=== PATIENT | female | born 2000 | race Caucasian/White ===

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

== ENCOUNTER → 2018-12-16 | Outpatient (REF) | payer OTHER ==
[~2018-12-16] MED LIST changes: +IBUP-1114 PO; +MAPA500T2 PO; +PRENTAB9 PO; +ROLA1CHW PO; +TRAZ1TAB10 PO; -TRAZO50TA PO
[2018-12-16 19:11] LABS: HEMOGLOBIN 12.8 g/dl (12.0-15.5); MEAN CORPUSCULAR HEMOGLOBIN 27.1 pg (27.0-33.0); MEAN CORPUSCULAR HGB CONC 32.8 g/dl (32.0-36.5); MEAN CORPUSCULAR VOLUME 82.5 fl (80.0-96.0); PLATELET COUNT, AUTOMATED 300 10^3/uL (150-450); RED BLOOD COUNT 4.73 10^6/uL (4.00-5.40)
[2018-12-16 19:21] LABS: HCG, SERUM QUANTITATIVE 58594 MIU/ML
[2018-12-16 19:43] LABS: HIV 1&2 SCREEN CENTAUR NEGATIVE (NEGATIVE)
[2018-12-18 10:57] LABS: RUBELLA IgG QUALITATIVE IMMUNE (IMMUNE)
[2018-12-18 11:26] LABS: HEPATITIS C VIRUS ABY INDEX 0.1 INDEX (<0.8)
== END ==
LOC: M LAB REF 16:50
PROVIDERS: ATTEND Obstetrics & Gynecology
DX: O36.80X0 Pregnancy with inconclusive fetal viability, not applicable or unspecified (principal)

== ENCOUNTER 2018-12-19 15:42 | Emergency (ER) | payer OTHER ==
[~2018-12-19] VITALS: Ht 154.9 cm; Wt 96.4 kg
[2018-12-19 17:45] VITALS: BP 116/74
== END 2018-12-19 17:50 | disposition home or self-care (01) ==
LOC: M ED 15:42
DX: F43.20 Adjustment disorder, unspecified (principal); T76.11XA Adult physical abuse, suspected, initial encounter; X58.XXXA Exposure to other specified factors, initial encounter; Y92.89 Other specified places as the place of occurrence of the external cause

== ENCOUNTER → 2019-05-04 | Outpatient (CLI) | payer OTHER ==
[2019-05-04 11:26] LABS: HEMATOCRIT 34.4 % (36.0-47.0); HEMOGLOBIN 10.9 g/dl (12.0-15.5); MEAN CORPUSCULAR HEMOGLOBIN 27.9 pg (27.0-33.0); MEAN CORPUSCULAR HGB CONC 31.7 g/dl (32.0-36.5); PLATELET COUNT, AUTOMATED 233 10^3/uL (150-450); RED BLOOD COUNT 3.91 10^6/uL (4.00-5.40); WHITE BLOOD COUNT 10.9 10^3/uL (4.0-10.0)
== END ==
LOC: M LAB 09:34
PROVIDERS: ATTEND Nurse Practitioner Women's Health
DX: Z34.82 Encounter for supervision of other normal pregnancy, second trimester (principal); Z3A.00 Weeks of gestation of pregnancy not specified

== ENCOUNTER → 2019-05-11 | Outpatient (CLI) | payer OTHER, MEDICAID | LOC: M LAB 08:01 | PROVIDERS: ATTEND Nurse Practitioner Women's Health | DX: R73.02 Impaired glucose tolerance (oral) (principal) ==

== ENCOUNTER → 2019-06-02 | Outpatient (REF) | payer OTHER, MEDICAID | LOC: M LAB REF 16:38 | PROVIDERS: ATTEND Obstetrics & Gynecology | DX: R31.0 Gross hematuria (principal) ==

== ENCOUNTER → 2019-06-03 | Outpatient (CLI) | payer OTHER, MEDICAID ==
--- NOTE | 2019-06-04 02:47 | REP ---
Clinical: Flank pain and hematuria. . Technique: Real time martinez scale ultrasound examination using. Findings: Right kidney is normal in reniform shape and echogenicity demonstrating mild hydronephrosis and hydroureter without intrarenal calculi, cyst or renal mass lesion. Right kidney measures 14.5 x 6.7 x 6.3 cm. Left kidney is normal in contour, size, echogenicity, and reniform shape without hydronephrosis, nephrolithiasis or renal mass lesion. Left kidney measures 12.7 x 5.2 x 5.9 cm with possible 1.3 cm parapelvic cyst. Bladder is normal and bilateral ureteral jets are identified. Impression: Mild right-sided hydronephrosis likely induced. Electronically Signed by Matty Merrill MD 06/04/2019 02:38 A
== END ==
LOC: M RAD 15:41
PROVIDERS: ATTEND Obstetrics & Gynecology
DX: O23.00 Infections of kidney in pregnancy, unspecified trimester (principal); R31.0 Gross hematuria; N13.30 Unspecified hydronephrosis

== ENCOUNTER → 2019-06-22 | Outpatient (REF) | payer OTHER, MEDICAID | LOC: M LAB REF 12:16 | PROVIDERS: ATTEND Obstetrics & Gynecology | DX: Z34.83 Encounter for supervision of other normal pregnancy, third trimester (principal); Z36.85 Encounter for antenatal screening for Streptococcus B ==

== ENCOUNTER → 2019-07-05 | Outpatient (CLI) | payer OTHER, MEDICAID ==
[~2019-07-05] MED LIST changes: -FLUO20CA19 PO; +FLUO20CA22 PO
--- NOTE | 2019-07-05 17:11 | REP ---
Clinical: Growth evaluation. Comparison: Cephalic . Findings: Examination demonstrates a single live intrauterine in the cephalic presentation. motion is identified by technologist. Placenta is noted posteriorly and grade II without evidence for placenta previa or abruption. Amniotic fluid volume is normal. Cervix measures 4.4 cm in length and appears closed. However, there is a small amount of fluid and possible mucous just anterior to the internal os of uncertain significance. No evidence for nuchal cord. Gestational age by LMP 36 weeks 5 days with HOMA 07/28/2019 . Gestational age by current measurements 37 weeks 3-day with HOMA date 07/23/2019 . FHR equals 138 beats per minute. Estimated weight 3393 grams ( 77th percentile based on age by LMP ). Amniotic fluid index: 14.2 cm (7.6 - 24.5) Umbilical cord SD ratio: 2.69 (1.71 - 2.71). Impression: 1. Single live advanced gestation in cephalic presentation demonstrating appropriate interval growth. 2. Small amount of fluid and/or mucous adjacent to the internal os without funneling and of uncertain significance. Electronically Signed by Matty Merrill MD 07/05/2019 05:02 P
== END ==
LOC: M RAD 15:57
PROVIDERS: ATTEND Obstetrics & Gynecology
DX: O32.8XX1 Maternal care for other malpresentation of fetus, fetus 1 (principal); Z3A.36 36 weeks gestation of pregnancy

== ENCOUNTER 2019-07-27 10:35 | Inpatient (IN) | payer OTHER, MEDICAID ==
[2019-07-27] VITALS (7 sets, daily range): BP systolic 113–127; BP diastolic 55–74
[~2019-07-27] VITALS: Ht 157.5 cm; Wt 100.2 kg
[2019-07-27] MEDS ORDERED: LACTATED RINGER'S 1000 ML IV STA (11:03)
[2019-07-27] MEDS ORDERED: LR 1,000 ML IV SCH ×2 (11:03→14:30)
[2019-07-27] MEDS ORDERED: ceFAZolin SOD 2 GM in IV 1 EA IV ONE (11:15)
[2019-07-27] MEDS ORDERED: BICITRA 30ML SOLN UDC PO ONE (11:15)
[2019-07-27 11:29] LABS: HEMATOCRIT 35.6 % (36.0-47.0); MEAN CORPUSCULAR HEMOGLOBIN 24.3 pg (27.0-33.0); MEAN CORPUSCULAR HGB CONC 30.9 g/dl (32.0-36.5); MEAN CORPUSCULAR VOLUME 78.8 fl (80.0-96.0); PLATELET COUNT, AUTOMATED 224 10^3/uL (150-450); RED BLOOD COUNT 4.52 10^6/uL (4.00-5.40); WHITE BLOOD COUNT 11.6 10^3/uL (4.0-10.0)
[2019-07-27] MEDS ORDERED: KETOROLAC 60 MG/2 ML VIAL (J1885) As Ordered ONE (12:54)
[2019-07-27] MEDS ORDERED: dexameTHASONE 4 MG/ML 1ML VIAL (J1100) As Ordered ONE (12:54)
[2019-07-27] MEDS ORDERED: ONDANSETRON 4MG/2ML VIAL (J2405) As Ordered ONE (12:54)
[2019-07-27] MEDS ORDERED: OXYTOCIN INJ 10 UNITS/ML VIAL (J2590) As Ordered ONE (12:54)
[2019-07-27] MEDS ORDERED: MORPHINE PRES-FREE INJ 10 MG/10 ML VIAL (J2274) As Ordered ONE (12:54)
[2019-07-27] MEDS ORDERED: ONDANSETRON 4MG/2ML VIAL (J2405) IV PRN ×2 (13:18→14:30)
[2019-07-27] MEDS ORDERED: NALOXONE INJ 0.4 MG/1 ML VIAL (J2310) IV PRN ×2 (13:18)
[2019-07-27] MEDS ORDERED: METOCLOPRAMIDE INJ 10MG/2ML VIAL (J2765) IV PRN ×2 (13:18→14:30)
[2019-07-27] MEDS ORDERED: NALBUPHINE HCL 10 MG/ML AMP (J2300) IV PRN (13:18)
[2019-07-27] MEDS ORDERED: diphenhydrAMINE INJ 50MG/ML VIAL (J1200) IV PRN (13:18)
[2019-07-27] MEDS ORDERED: PHENYLephrine HCL 500 MCG/5 ML (100MCG/ML) SYRINGE (J2370) As Ordered ONE (13:38)
[2019-07-27] MEDS ORDERED: ePHEDrine SULFATE 25 MG/5 ML(5MG/ML) SYRINGE As Ordered ONE (13:38)
[2019-07-27 13:52] LABS: CORD GAS ABE A -0.9; CORD GAS HCO3 A 25.7 MEQ/L; CORD GAS O2 SAT A 58.4 %; CORD GAS PCO2 A 49.9 mmHg; CORD GAS PH A 7.329 UNITS; CORD GAS PO2 A 24.5 mmHg; CORD GAS SBC A 22.8 MEQ/L; CORD GAS TCO2 A 27.2 MEQ/L
[2019-07-27 13:53] LABS: CORD GAS HCO3 V 22.6 MEQ/L; CORD GAS O2 SAT V 91.3 %; CORD GAS PCO2 V 38.2 mmHg; CORD GAS PH V 7.39 UNITS; CORD GAS PO2 V 47.8 mmHg; CORD GAS SBC V 22.7 MEQ/L; CORD GAS TCO2 V 23.8 MEQ/L
[2019-07-27] MEDS ORDERED: MOM 30ML SUSPENSION UDC PO PRN (14:15)
[2019-07-27] MEDS ORDERED: OXYTOCIN 30 UNITS IN 0.9% NaCl 500ML IV BAG (J2590) As Ordered ONE (14:23)
[2019-07-27] MEDS ORDERED: PERCOCET 5MG/325MG TAB PO PRN (14:30)
[2019-07-27] MEDS ORDERED: fentaNYL 100 MCG/2 ML INJECTION (J3010) IV PRN (14:30)
[2019-07-27] MEDS ORDERED: OXYTOCIN DRIP 30 UNITS in IV 1 EA IV SCH (15:00)
[2019-07-27] MEDS ORDERED: MEASLES,MUMPS,RUBELLA VACCINE INJ (MMR-II) (90707) SC SCH (15:00)
[2019-07-27] MEDS ORDERED: RHOGAM 300 MCG (1500 IU) INJ (J2790) IM SCH (15:00)
[2019-07-27] MEDS: PERCOCET 5MG/325MG TAB PO PRN (17:48)
[2019-07-27] MEDS ORDERED: ADACEL/BOOSTRIX VACCINE (DIPHTH/PERTUSS/ACELL/TETANUS)0.5ML SYR (90715) IM ONE (20:00)
[2019-07-27] MEDS: DOCUSATE SODIUM 100 MG CAP PO SCH (20:16)
[2019-07-28 02:23] VITALS: BP 124/58
[2019-07-28] MEDS: PERCOCET 5MG/325MG TAB PO PRN ×4 (04:52→20:25)
[2019-07-28 05:39] VITALS: BP 106/55
[2019-07-28 07:24] LABS: MEAN CORPUSCULAR HEMOGLOBIN 24.3 pg (27.0-33.0); MEAN CORPUSCULAR HGB CONC 30.4 g/dl (32.0-36.5); MEAN CORPUSCULAR VOLUME 79.9 fl (80.0-96.0); PLATELET COUNT, AUTOMATED 197 10^3/uL (150-450); RED BLOOD COUNT 2.88 10^6/uL (4.00-5.40); WHITE BLOOD COUNT 17.6 10^3/uL (4.0-10.0)
[2019-07-28] MEDS: DOCUSATE SODIUM 100 MG CAP PO SCH ×2 (08:35→20:23)
[2019-07-28] MEDS: PRENATAL VITAMINS CHEWABLE TABLET PO SCH (08:35)
[2019-07-28] MEDS: IBUPROFEN 800 MG TAB PO PRN ×2 (08:35→16:48)
[2019-07-28 10:09] VITALS: BP 112/56
[2019-07-28 14:00] VITALS: BP 108/53
[2019-07-28 17:53] VITALS: BP 111/56
[2019-07-28 22:00] VITALS: BP 116/57
[2019-07-29] MEDS: PERCOCET 5MG/325MG TAB PO PRN ×4 (00:20→13:23)
[2019-07-29] MEDS: IBUPROFEN 800 MG TAB PO PRN ×2 (00:21→09:03)
[2019-07-29 05:36] VITALS: BP 119/58
[2019-07-29 07:22] LABS: HEMATOCRIT 24.5 % (36.0-47.0); HEMOGLOBIN 7.4 g/dl (12.0-15.5); MEAN CORPUSCULAR HEMOGLOBIN 24.3 pg (27.0-33.0); MEAN CORPUSCULAR HGB CONC 30.2 g/dl (32.0-36.5); MEAN CORPUSCULAR VOLUME 80.3 fl (80.0-96.0); PLATELET COUNT, AUTOMATED 175 10^3/uL (150-450); RED BLOOD COUNT 3.05 10^6/uL (4.00-5.40); WHITE BLOOD COUNT 13.8 10^3/uL (4.0-10.0)
[2019-07-29] MEDS ORDERED: IBUP80TA PO (07:37)
[2019-07-29] MEDS ORDERED: PERCOCET PO (07:37)
[2019-07-29] MEDS: DOCUSATE SODIUM 100 MG CAP PO SCH (09:02)
[2019-07-29] MEDS: PRENATAL VITAMINS CHEWABLE TABLET PO SCH (09:03)
--- NOTE | 2019-07-29 13:55 | RO ---
DATE OF PROCEDURE: 07/27/2019 Radha is a 18-year-old female, 2, para 1-0-0-1, who is admitted at 39 and 6 weeks gestation with breech presentation for elective primary section. PREOPERATIVE DIAGNOSES: 1. Intrauterine at 39-6/7 weeks gestation. 2. Breech presentation, transverse breech. Patient requesting delivery via primary section. POSTOPERATIVE DIAGNOSES: 1. Intrauterine at 39-6/7 weeks gestation. 2. Breech presentation, transverse breech. Patient requesting delivery via primary section. PROCEDURE: 1. Primary low transverse section. 2. Internal cephalic version. SURGEON: Dr. Ej Flores BUTTON RECLAIMER: ANESTHESIA: Spinal. COMPLICATIONS: None. ESTIMATED BLOOD LOSS: 800 mL. FINDINGS: Live male infant in breech presentation. 9 and 9. weight 8 pounds 14 ounces. Normal-appearing tubes and ovaries. DESCRIPTION OF PROCEDURE: After obtaining informed consent, the patient was taken to the operating room where spinal anesthetic was found to be adequate. She was then draped and prepped in the usual sterile fashion in the supine position. At this point, a Pfannenstiel incision was made. This was carried down to the fascia. The fascia was incised in midline fashion and carried through laterally. Superior aspect of the fascia was then grasped with Moise clamps, tented off and dissected off the rectus muscles sharply. The inferior aspect was dissected off in a similar fashion. Rectus muscles were midline fashion. Perineum identified. Peritoneal cavity entered bluntly. Superior and inferior dissection of the peritoneum was then done with good visualization of the bladder. At this point, a Mobius skin retractor was placed. An internal cephalic version was then performed. A low-transverse uterine incision was made. Infant was delivered in atraumatic fashion. Nose and mouth bulb suctioned. Cord doubly clamped and cut. The infant was handed over to awaiting warmer. Cord blood and cord gas were sent. Placenta removed manually. Uterus cleared of all clot and debris. The uterine incision was then repaired in two separate layers of #0 Vicryl sutures. The pelvis copiously irrigated with normal saline and suctioned out. Attention turned to the peritoneum which was closed in running fashion using #2-0 Vicryl. Fascia closed in two separate segments of #0 Vicryl sutures. All superficial bleeders coagulated. The skin was reapproximated in subcuticular fashion using #3-0 Vicryl in a Shawn. Steri-Strips placed. The patient tolerated the procedure well. She was then transferred to the recovery room in stable condition.
== END 2019-07-29 14:00 | disposition home or self-care (01) | DRG 788 ==
LOC: M LDI 10:35 → M OBS 15:47
PROVIDERS: ADMIT Obstetrics & Gynecology; ATTEND Obstetrics & Gynecology
PROC: 10D00Z1 Extraction of Products of Conception, Low, Open Approach (ICD-10-PCS; principal; 2019-07-27 13:00)
DX: O64.1XX0 Obstructed labor due to breech presentation, not applicable or unspecified (principal); Z3A.39 39 weeks gestation of pregnancy; Z37.0 Single live birth

== ENCOUNTER → 2020-12-13 | Outpatient (CLI) | payer OTHER ==
[~2020-12-13] MED LIST changes: +IBUP80TA PO; +PERCOCET PO
[2020-12-13 12:07] LABS: BASO % 0.3 % (0.0-1.0); EOS # 0.2 10^3/uL (0.0-0.5); EOS % 2.3 % (0.0-3.0); HEMATOCRIT 38.8 % (36.0-47.0); HEMOGLOBIN 11.7 g/dl (12.0-15.5); LYMPH # 1.6 10^3/uL (1.5-5.0); LYMPH % 17.5 % (24.0-44.0); MEAN CORPUSCULAR HEMOGLOBIN 23.5 pg (27.0-33.0); MEAN CORPUSCULAR HGB CONC 30.2 g/dl (32.0-36.5); MEAN CORPUSCULAR VOLUME 77.9 fl (80.0-96.0); MONO # 0.7 10^3/uL (0.0-0.8); MONO % 7.7 % (2.0-8.0); NEUTROPHILS # 6.6 10^3/uL (1.5-8.5); NEUTROPHILS % 71.9 % (36.0-66.0); PLATELET COUNT, AUTOMATED 326 10^3/uL (150-450); RED BLOOD COUNT 4.98 10^6/uL (4.00-5.40); WHITE BLOOD COUNT 9.2 10^3/uL (4.0-10.0)
[2020-12-13 12:36] LABS: ALBUMIN 3.6 GM/DL (3.2-5.2); ALT/SGPT 26 U/L (12-78); BILIRUBIN,TOTAL 0.2 MG/DL (0.2-1.0); BLOOD UREA NITROGEN 10 MG/DL (7-18); CALCIUM LEVEL 8.8 MG/DL (8.5-10.1); CARBON DIOXIDE LEVEL 28 MEQ/L (21-32); CHLORIDE LEVEL 109 MEQ/L (98-107); GLOMERULAR FILTRATION RATE > 60.0 (>60); GLUCOSE, FASTING 90 MG/DL (70-100); POTASSIUM SERUM 3.9 MEQ/L (3.5-5.1); SODIUM LEVEL 142 MEQ/L (136-145); THYROID STIMULATING HORMONE 0.579 uIU/ML (0.358-3.740); TOTAL PROTEIN 7.4 GM/DL (6.4-8.2)
== END ==
LOC: M WUC 08:50
PROVIDERS: ATTEND Family Medicine
DX: R63.5 Abnormal weight gain (principal)

== ENCOUNTER → 2021-02-05 | Outpatient (REF) | payer OTHER | LOC: M LABDRWAD 12:19 | PROVIDERS: ATTEND Internal Medicine Endocrinology, Diabetes & Metabolism | DX: E66.01 Morbid (severe) obesity due to excess calories (principal) ==

== ENCOUNTER → 2021-05-07 | Outpatient (REF) | payer OTHER ==
[2021-05-07 13:13] LABS: APPEARANCE, URINE TURBID (CLEAR); BACTERIA, URINE AUTO NEGATIVE (NEGATIVE); BILIRUBIN, URINE AUTO 1+ (NEGATIVE); BLOOD, URINE BLOOD 2+ (NEGATIVE); COLOR, URINE AMBER (YELLOW); GLUCOSE, URINE (UA) AUTO NEGATIVE (NEGATIVE); KETONE, URINE AUTO TRACE mg/dL (NEGATIVE); LEUKOCYTE ESTERASE, URINE AUTO 3+ (NEGATIVE); MUCUS, URINE SMALL (NEGATIVE); NITRITE, URINE AUTO NEGATIVE (NEGATIVE); PROTEIN, URINE AUTO 3+ mg/dL (NEGATIVE); RBC, URINE AUTO TNTC /HPF (0-3); SPECIFIC GRAVITY URINE AUTO 1.027 (1.002-1.035); SQUAMOUS EPITHELIAL CELL UR AU 8 /HPF (0-6); UROBILINOGEN, URINE AUTO 0.2 mg/dL (0.0-2.0); WBC, URINE AUTO TNTC /HPF (0-3)
== END ==
LOC: M LAB REF 11:45
PROVIDERS: ATTEND Physician Assistant Medical
DX: R10.2 Pelvic and perineal pain (principal); R30.0 Dysuria

== ENCOUNTER 2021-09-10 19:40 | Emergency (ER) | payer OTHER ==
[~2021-09-10] VITALS: Ht 154.9 cm; Wt 84.1 kg
[~2021-09-10 19:40] MED LIST changes: -ACET-907 PO; -CIPR500T39 PO; -MACR100C43 PO; -ONDA4TAB6 PO; -PHEN-501 PO; -TRI-TAB16; -TRI-TAB16 PO
[2021-09-10] MEDS ORDERED: TRI-TAB16 (20:03)
[2021-09-10] MEDS ORDERED: ACETAMINOPHEN TAB 650MG DOSE (2X325MG) PO ONE (20:05)
[2021-09-10] MEDS ORDERED: IBUPROFEN 800 MG TAB PO ONE (23:05)
[2021-09-10] MEDS ORDERED: ONDANSETRON 4MG ORAL DISINTEGRATING TAB PO ONE (23:05)
[2021-09-10 23:24] LABS: BASO % 0.2 % (0.0-1.0); HEMATOCRIT 38.5 % (36.0-47.0); HEMOGLOBIN 11.8 g/dl (12.0-15.5); LYMPH # 0.7 10^3/uL (1.5-5.0); LYMPH % 4.1 % (24.0-44.0); MEAN CORPUSCULAR HEMOGLOBIN 23.9 pg (27.0-33.0); MEAN CORPUSCULAR HGB CONC 30.6 g/dl (32.0-36.5); MEAN CORPUSCULAR VOLUME 77.9 fl (80.0-96.0); MONO % 9.1 % (2.0-8.0); NEUTROPHILS # 15.5 10^3/uL (1.5-8.5); PLATELET COUNT, AUTOMATED 305 10^3/uL (150-450); RED BLOOD COUNT 4.94 10^6/uL (4.00-5.40)
[2021-09-10 23:25] LABS: MONO # 1.6 10^3/uL (0.0-0.8)
[2021-09-10] MEDS ORDERED: CIPROFLOXACIN 500MG TABLET PO ONE (23:50)
[2021-09-10] MEDS ORDERED: ONDA4TAB6 PO (23:56)
[2021-09-10] MEDS ORDERED: CIPR500T39 PO (23:56)
[2021-09-11 00:01] VITALS: BP 113/51
[2021-09-12] MEDS ORDERED: MACR100C43 PO (02:56)
[2021-09-12] MEDS ORDERED: PHEN-501 PO (02:56)
[2021-09-12] MEDS ORDERED: ACET-907 PO (02:56)
[2021-09-12] MEDS ORDERED: TRI-TAB16 PO (02:56)
[2021-09-17] MEDS ORDERED: AMOX875T2 PO (11:09)
[2021-09-17] MEDS ORDERED: PRED5PAK2 PO (11:09)
[2021-09-17] MEDS ORDERED: SORE15LO PO (11:09)
[2021-09-17] MEDS ORDERED: CIPR7.5D2 AD (11:09)
== END 2021-09-11 00:18 | disposition home or self-care (01) ==
LOC: M ED 19:40
DX: N10 Acute pyelonephritis (principal); F41.9 Anxiety disorder, unspecified

== ENCOUNTER → 2021-09-10 | Outpatient (REF) | payer OTHER ==
[~2021-09-10] MED LIST changes: +ACET-907 PO; +CIPR500T39 PO; +MACR100C43 PO; +ONDA4TAB6 PO; +PHEN-501 PO; +TRI-TAB16; +TRI-TAB16 PO
[2021-09-10 18:07] LABS: AMORPHOUS SEDIMENT SMALL (NEGATIVE); APPEARANCE, URINE HAZY (CLEAR); BACTERIA, URINE AUTO NEGATIVE (NEGATIVE); BILIRUBIN, URINE AUTO NEGATIVE (NEGATIVE); BLOOD, URINE BLOOD 1+ (NEGATIVE); COLOR, URINE YELLOW (YELLOW); GLUCOSE, URINE (UA) AUTO NEGATIVE (NEGATIVE); KETONE, URINE AUTO NEGATIVE (NEGATIVE); LEUKOCYTE ESTERASE, URINE AUTO 3+ (NEGATIVE); NITRITE, URINE AUTO NEGATIVE (NEGATIVE); PROTEIN, URINE AUTO NEGATIVE (NEGATIVE); RBC, URINE AUTO 2 /HPF (0-3); SQUAMOUS EPITHELIAL CELL UR AU 3 /HPF (0-6); UROBILINOGEN, URINE AUTO 0.2 mg/dL (0.0-2.0); WBC, URINE AUTO 33 /HPF (0-3)
[2021-09-10 18:08] LABS: URINE PREG TEST NEGATIVE (NEGATIVE)
[2021-09-10 20:35] LABS: GC DNA AMPLIFICATION NEGATIVE (NEGATIVE)
== END ==
LOC: M LAB REF 17:25
PROVIDERS: ATTEND Physician Assistant Medical
DX: N39.0 Urinary tract infection, site not specified (principal)

== ENCOUNTER → 2021-12-23 | Outpatient (CLI) | payer OTHER ==
[~2021-12-23] MED LIST changes: +ACET-907 PO; +AMOX875T2 PO; +CIPR500T39 PO; +CIPR7.5D2 AD; +MACR100C43 PO; +ONDA4TAB6 PO; +PHEN-501 PO; +PRED5PAK2 PO; +SORE15LO PO; +TRI-TAB16; +TRI-TAB16 PO
== END ==
LOC: M LABSMTC 11:03
PROVIDERS: ATTEND Anesthesiology
DX: Z01.812 Encounter for preprocedural laboratory examination (principal); Z20.822 Contact with and (suspected) exposure to COVID-19

== ENCOUNTER 2021-12-27 06:04 | Day surgery (SDC) | payer OTHER ==
[~2021-12-27] VITALS: Ht 154.9 cm; Wt 90.2 kg
[~2021-12-27 06:04] MED LIST changes: +dexameTHASONE 4 MG/ML 1ML VIAL (J1100 PER 1MG) IV ONE
[2021-12-27] MEDS ORDERED: LR 1,000 ML IV SCH ×3 (06:40→10:05)
[2021-12-27] MEDS ORDERED: OXYMETAZOLINE 0.05% NASAL SPRAY (AFRIN) As Ordered ONE (07:10)
[2021-12-27] MEDS ORDERED: LIDOCAINE 2% 100MG/5ML SDV (FOR ANES.) As Ordered ONE (07:49)
[2021-12-27] MEDS ORDERED: propofoL 200 MG/20 ML VIAL As Ordered ONE (07:49)
[2021-12-27] MEDS ORDERED: ROCURONIUM BROMIDE 50 MG/5 ML VIAL As Ordered ONE (07:49)
[2021-12-27] MEDS ORDERED: dexameTHASONE 4 MG/ML 1ML VIAL (J1100 PER 1MG) As Ordered ONE (07:49)
[2021-12-27] MEDS ORDERED: ONDANSETRON 4MG 2ML VIAL As Ordered ONE (07:49)
[2021-12-27] MEDS ORDERED: SUGAMMADEX SODIUM 500 MG/5 ML VIAL (BRIDION) As Ordered ONE (07:49)
[2021-12-27] MEDS ORDERED: MIDAZOLAM INJ 2MG/2ML VIAL (J2250 PER 1MG) As Ordered ONE (07:49)
[2021-12-27] MEDS ORDERED: fentaNYL 250 MCG/5 ML INJECTION As Ordered ONE (07:49)
[2021-12-27] MEDS ORDERED: ACETAMINOPHEN 1000MG 100ML IV BTL (OFIRMEV) (J0131 PER 10MG) As Ordered ONE (07:49)
[2021-12-27] MEDS ORDERED: ONDANSETRON 4MG 2ML VIAL IV PRN (08:30)
[2021-12-27] MEDS ORDERED: fentaNYL 100 MCG/2 ML INJECTION IV PRN (08:30)
[2021-12-27] MEDS ORDERED: oxyCODONE 5MG TAB PO PRN (08:30)
[2021-12-27 09:35] VITALS: BP 133/87
== END 2021-12-27 10:29 | disposition home or self-care (01) ==
LOC: M SDC 06:04
PROVIDERS: ATTEND Otolaryngology
DX: J35.1 Hypertrophy of tonsils (principal); D64.9 Anemia, unspecified; F41.9 Anxiety disorder, unspecified; F32.A Depression, unspecified; Z79.899 Other long term (current) drug therapy
CPT/HCPCS: 42826; 81025; 88302; J0131; J1100; J2250; J2405; J3010

== ENCOUNTER → 2022-04-07 | Outpatient (REF) | payer OTHER ==
[~2022-04-07] MED LIST changes: +BENZ1LOZ2 PO; -SORE15LO PO; -dexameTHASONE 4 MG/ML 1ML VIAL (J1100 PER 1MG) IV ONE
[2022-04-07 22:24] LABS: GC DNA AMPLIFICATION NEGATIVE (NEGATIVE)
== END ==
LOC: M LAB REF 20:49
PROVIDERS: ATTEND Physician Assistant
DX: R30.0 Dysuria (principal)

== ENCOUNTER 2022-06-13 16:52 | Emergency (ER) | payer OTHER ==
[~2022-06-13] VITALS: Ht 154.9 cm; Wt 94.9 kg
[2022-06-13 21:45] VITALS: BP 138/76
== END 2022-06-14 02:10 | disposition left against medical advice (07) ==
LOC: M ED 16:52
DX: Z53.21 Procedure and treatment not carried out due to patient leaving prior to being seen by health care provider (principal)

== ENCOUNTER → 2022-06-13 | Outpatient (REF) | payer OTHER ==
[2022-06-13 19:17] LABS: GC DNA AMPLIFICATION NEGATIVE (NEGATIVE)
== END ==
LOC: M LAB REF 17:06
PROVIDERS: ATTEND Nurse Practitioner Family
DX: Z11.8 Encounter for screening for other infectious and parasitic diseases (principal)

== ENCOUNTER → 2022-07-25 | Outpatient (REF) | payer OTHER ==
[2022-07-25 21:39] LABS: GC DNA AMPLIFICATION NEGATIVE (NEGATIVE)
== END ==
LOC: M LAB REF 17:06
PROVIDERS: ATTEND Registered Nurse
DX: Z11.3 Encounter for screening for infections with a predominantly sexual mode of transmission (principal)

== ENCOUNTER → 2022-08-29 | Outpatient (REF) | payer OTHER ==
[2022-08-29 23:07] LABS: GC DNA AMPLIFICATION NEGATIVE (NEGATIVE)
== END ==
LOC: M LAB REF 16:59
PROVIDERS: ATTEND Registered Nurse
DX: Z12.4 Encounter for screening for malignant neoplasm of cervix (principal); Z11.3 Encounter for screening for infections with a predominantly sexual mode of transmission
CPT/HCPCS: 87070; 87624; 87810; 87850; G0123

== ENCOUNTER → 2022-09-23 | Outpatient (CLI) | payer OTHER | LOC: M PLAIMG 11:08 | PROVIDERS: ATTEND Family Medicine | DX: M25.572 Pain in left ankle and joints of left foot (principal) ==

== ENCOUNTER → 2022-12-26 | Outpatient (CLI) | payer MEDICAID, OTHER ==
[2022-12-26 16:02] LABS: BASO # 0.1 10^3/uL (0.0-0.2); BASO % 0.5 % (0.0-1.0); EOS # 0.2 10^3/uL (0.0-0.5); EOS % 1.8 % (0.0-3.0); HEMATOCRIT 36.5 % (36.0-47.0); HEMOGLOBIN 11.2 g/dl (12.0-15.5); LYMPH % 18.7 % (24.0-44.0); MEAN CORPUSCULAR HEMOGLOBIN 24.3 pg (27.0-33.0); MEAN CORPUSCULAR HGB CONC 30.7 g/dl (32.0-36.5); MEAN CORPUSCULAR VOLUME 79.3 fl (80.0-96.0); MONO # 0.9 10^3/uL (0.0-0.8); MONO % 7.9 % (2.0-8.0); NEUTROPHILS # 7.7 10^3/uL (1.5-8.5); NEUTROPHILS % 70.6 % (36.0-66.0); PLATELET COUNT, AUTOMATED 347 10^3/uL (150-450); WHITE BLOOD COUNT 10.9 10^3/uL (4.0-10.0)
[2022-12-26 16:32] LABS: PERCENT SATURATION 4.6 % (13.2-45.0)
[2022-12-26 16:33] LABS: FERRITIN 3.8 NG/ML (7.3-270.7)
== END ==
LOC: M LAB 15:00
PROVIDERS: ATTEND Registered Nurse
DX: R53.83 Other fatigue (principal)

== ENCOUNTER → 2023-03-04 | Outpatient (CLI) | payer OTHER | LOC: M SOG 08:05 | PROVIDERS: ATTEND Physician Assistant | DX: M25.531 Pain in right wrist (principal) ==

== ENCOUNTER → 2023-06-04 | Outpatient (CLI) | payer OTHER ==
[~2023-06-04] MED LIST changes: -BENZ1LOZ2 PO; +SORE15LO PO
== END ==
LOC: M WHC 07:15
PROVIDERS: ATTEND Physician Assistant
DX: Z36.87 Encounter for antenatal screening for uncertain dates (principal); Z32.01 Encounter for pregnancy test, result positive; Z3A.09 9 weeks gestation of pregnancy; O26.891 Other specified pregnancy related conditions, first trimester; N83.11 Corpus luteum cyst of right ovary

== ENCOUNTER → 2023-09-25 | Outpatient (REF) | payer OTHER ==
[2023-09-25 17:22] LABS: HEMATOCRIT 37.6 % (36.0-47.0); HEMOGLOBIN 12.1 g/dl (12.0-15.5); MEAN CORPUSCULAR HGB CONC 32.2 g/dl (32.0-36.5); MEAN CORPUSCULAR VOLUME 80.7 fl (80.0-96.0); PLATELET COUNT, AUTOMATED 310 10^3/uL (150-450); RED BLOOD COUNT 4.66 10^6/uL (4.00-5.40); WHITE BLOOD COUNT 10.5 10^3/uL (4.0-10.0)
[2023-09-25 17:58] LABS: HEPATITIS B SURFACE ANTIGEN NEGATIVE (NEGATIVE)
[2023-09-25 18:12] LABS: HIV 1&2 SCREEN NEGATIVE (NEGATIVE)
[2023-09-25 18:20] LABS: HEPATITIS C VIRUS ABY INDEX < 0.02 INDEX (<0.8)
[2023-09-25 18:30] LABS: HCG, SERUM QUANTITATIVE 9786.8 MIU/ML (<4.2)
== END ==
LOC: M LAB REF 16:12
PROVIDERS: ATTEND Obstetrics & Gynecology
DX: O36.80X0 Pregnancy with inconclusive fetal viability, not applicable or unspecified (principal); Z32.01 Encounter for pregnancy test, result positive; Z3A.00 Weeks of gestation of pregnancy not specified

== ENCOUNTER → 2023-10-13 | Outpatient (CLI) | payer OTHER | LOC: M RAD 08:25 | PROVIDERS: ATTEND Obstetrics & Gynecology | DX: O36.80X0 Pregnancy with inconclusive fetal viability, not applicable or unspecified (principal); O28.3 Abnormal ultrasonic finding on antenatal screening of mother; Z3A.08 8 weeks gestation of pregnancy ==

== ENCOUNTER → 2024-02-10 | Outpatient (CLI) | payer OTHER ==
[~2024-02-10] MED LIST changes: +FLUO-365 PO; -FLUO20CA22 PO; +ONDA-282 PO; -ONDA4TAB6 PO
[2024-02-10 13:17] LABS: BASO % 0.2 % (0.0-1.0); EOS # 0.2 10^3/uL (0.0-0.5); EOS % 1.3 % (0.0-3.0); HEMATOCRIT 31.6 % (36.0-47.0); HEMOGLOBIN 10.4 g/dl (12.0-15.5); LYMPH # 1.6 10^3/uL (1.5-5.0); LYMPH % 11.7 % (24.0-44.0); MEAN CORPUSCULAR HEMOGLOBIN 27.7 pg (27.0-33.0); MEAN CORPUSCULAR HGB CONC 32.9 g/dl (32.0-36.5); MONO # 0.8 10^3/uL (0.0-0.8); NEUTROPHILS # 10.7 10^3/uL (1.5-8.5); NEUTROPHILS % 79.2 % (36.0-66.0); PLATELET COUNT, AUTOMATED 260 10^3/uL (150-450); RED BLOOD COUNT 3.76 10^6/uL (4.00-5.40); WHITE BLOOD COUNT 13.5 10^3/uL (4.0-10.0)
[2024-02-10 13:38] LABS: ALBUMIN 2.6 G/DL (3.2-5.2); ALKALINE PHOSPHATASE 75 U/L (46-116); ALT/SGPT 13 U/L (7.0-40); AST/SGOT 13 U/L (<34); BILIRUBIN,TOTAL 0.2 MG/DL (0.3-1.2); BLOOD UREA NITROGEN 9 MG/DL (9-23); CALCIUM LEVEL 8.2 MG/DL (8.5-10.1); CARBON DIOXIDE LEVEL 25 MMOL/L (20-31); CHLORIDE LEVEL 107 MMOL/L (98-107); CREATININE FOR GFR 0.62 MG/DL (0.55-1.30); GLOMERULAR FILTRATION RATE > 60.0 (>60); GLUCOSE, FASTING 116 MG/DL (60-100); IRON (FE) 55 UG/DL (50-170); PERCENT SATURATION 11.8 % (13.2-45.0); POTASSIUM SERUM 3.3 MMOL/L (3.5-5.1); SODIUM LEVEL 138 MMOL/L (136-145); TOTAL IRON BINDING CAPACITY 465 UG/DL (250-425); TOTAL PROTEIN 6.4 G/DL (5.7-8.2)
[2024-02-10 13:40] LABS: FERRITIN 3.7 NG/ML (7.3-270.7)
== END ==
LOC: M LAB 12:42
PROVIDERS: ATTEND Nurse Practitioner Family
DX: D50.9 Iron deficiency anemia, unspecified (principal)

== ENCOUNTER → 2024-02-18 | Outpatient (CLI) | payer OTHER ==
[2024-02-18 13:37] LABS: HEMATOCRIT 32.8 % (36.0-47.0); HEMOGLOBIN 10.5 g/dl (12.0-15.5); MEAN CORPUSCULAR HEMOGLOBIN 27.3 pg (27.0-33.0); MEAN CORPUSCULAR VOLUME 85.2 fl (80.0-96.0); PLATELET COUNT, AUTOMATED 262 10^3/uL (150-450); RED BLOOD COUNT 3.85 10^6/uL (4.00-5.40); WHITE BLOOD COUNT 10.7 10^3/uL (4.0-10.0)
== END ==
LOC: M LAB 11:18
PROVIDERS: ATTEND Obstetrics & Gynecology
DX: Z34.82 Encounter for supervision of other normal pregnancy, second trimester (principal)

== ENCOUNTER → 2024-04-15 | Outpatient (REF) | payer OTHER | LOC: M LAB REF 12:54 | PROVIDERS: ATTEND Advanced Practice Midwife | DX: Z36.85 Encounter for antenatal screening for Streptococcus B (principal); Z34.83 Encounter for supervision of other normal pregnancy, third trimester ==

== ENCOUNTER → 2024-04-20 | Outpatient (CLI) | payer OTHER | LOC: M WHC 13:10 | PROVIDERS: ATTEND Advanced Practice Midwife | DX: O26.843 Uterine size-date discrepancy, third trimester (principal); Z3A.35 35 weeks gestation of pregnancy ==

== ENCOUNTER 2024-06-27 09:03 | Emergency (ER) | payer OTHER, MEDICAID ==
[~2024-06-27] VITALS: Ht 154.9 cm; Wt 91.4 kg
[2024-06-27 11:19] LABS: BASO # 0.1 10^3/uL (0.0-0.2); BASO % 0.6 % (0.0-1.0); EOS # 0.1 10^3/uL (0.0-0.5); EOS % 0.4 % (0.0-3.0); HEMATOCRIT 36.1 % (36.0-47.0); HEMOGLOBIN 10.8 g/dl (12.0-15.5); LYMPH # 0.9 10^3/uL (1.5-5.0); LYMPH % 7.3 % (24.0-44.0); MEAN CORPUSCULAR HEMOGLOBIN 22.6 pg (27.0-33.0); MEAN CORPUSCULAR HGB CONC 29.9 g/dl (32.0-36.5); MEAN CORPUSCULAR VOLUME 75.7 fl (80.0-96.0); MONO # 0.8 10^3/uL (0.0-0.8); MONO % 6.6 % (2.0-8.0); NEUTROPHILS # 9.9 10^3/uL (1.5-8.5); NEUTROPHILS % 84.8 % (36.0-66.0); PLATELET COUNT, AUTOMATED 463 10^3/uL (150-450); RED BLOOD COUNT 4.77 10^6/uL (4.00-5.40); WHITE BLOOD COUNT 11.7 10^3/uL (4.0-10.0)
[2024-06-27] MEDS: NS (Normal Saline) 0.9% 1,000 ML IV ONE (11:24)
[2024-06-27 11:37] LABS: AMPHETAMINES LEVEL URINE NEGATIVE (NEGATIVE); METHADONE URINE NEGATIVE (NEGATIVE); OPIATES URINE NEGATIVE (NEGATIVE); PHENCYCLIDINE URINE NEGATIVE (NEGATIVE)
[2024-06-27 11:38] LABS: BARBITURATES URINE NEGATIVE (NEGATIVE); BENZODIAZEPINES URINE NEGATIVE (NEGATIVE); COCAINE METABOLITE URINE NEGATIVE (NEGATIVE)
[2024-06-27 11:39] LABS: CANNABINOIDS URINE POSITIVE (NEGATIVE)
[2024-06-27 11:40] LABS: ETHYL ALCOHOL (ETHANOL) < 0.003 % (0.000-0.010)
[2024-06-27 11:42] LABS: ALBUMIN 4.3 G/DL (3.2-5.2); ALKALINE PHOSPHATASE 76 U/L (35-104); ALT/SGPT 62 U/L (7.0-40); AST/SGOT 35 U/L (<34); BILIRUBIN,DIRECT < 0.1 MG/DL (<0.4); BILIRUBIN,TOTAL 0.2 MG/DL (0.3-1.2); BLOOD UREA NITROGEN 17 MG/DL (9-23); CALCIUM LEVEL 9.7 MG/DL (8.5-10.1); CARBON DIOXIDE LEVEL 30 MMOL/L (20-31); CHLORIDE LEVEL 104 MMOL/L (98-107); CREATININE FOR GFR 0.68 MG/DL (0.55-1.30); GLOMERULAR FILTRATION RATE > 60.0 (>60); GLUCOSE, FASTING 90 MG/DL (60-100); MAGNESIUM LEVEL 1.8 MG/DL (1.8-2.4); POTASSIUM SERUM 4.5 MMOL/L (3.5-5.1); SODIUM LEVEL 145 MMOL/L (136-145); TOTAL PROTEIN 8.5 G/DL (5.7-8.2)
[2024-06-27] MEDS: ACETAMINOPHEN 325 MG TAB PO ONE (12:05)
[2024-06-27] MEDS ORDERED: AMOX875T PO (12:28)
[2024-06-27] MEDS ORDERED: PERI0.126 PO (12:28)
[2024-06-27 12:31] VITALS: BP 137/81; O2SAT 98
[2024-06-27 12:52] VITALS: TEMP 98.9
== END 2024-06-27 12:55 | disposition home or self-care (01) ==
LOC: M ED 09:03
DX: R55 Syncope and collapse (principal); S02.5XXA Fracture of tooth (traumatic), initial encounter for closed fracture; S01.511A Laceration without foreign body of lip, initial encounter; Y92.9 Unspecified place or not applicable; Y93.9 Activity, unspecified; Y99.9 Unspecified external cause status; D64.9 Anemia, unspecified